=== PATIENT | female | born 1995 | race Caucasian/White ===

== ENCOUNTER 2019-12-09 09:13 | Emergency (ER) | payer SELFPAY ==
[~2019-12-09] VITALS: Ht 157.5 cm; Wt 106.6 kg
[~2019-12-09 09:13] MED LIST: PHENTERMINE H37.5 M1 PO
[2019-12-09] MEDS ORDERED: PYRIDIUM100 MG PO (09:40)
[2019-12-09] MEDS ORDERED: MACRODANTIN100 MG PO (09:40)
== END 2019-12-09 09:32 | disposition home or self-care (01) ==
LOC: FSED 09:13
DX: N30.01 Acute cystitis with hematuria (principal)
CPT/HCPCS: 81003; 81025; 87086; 99283

== ENCOUNTER 2019-12-31 08:07 | Emergency (ER) | payer SELFPAY ==
[~2019-12-31] VITALS: Ht 157.5 cm; Wt 101.6 kg
[~2019-12-31 08:07] MED LIST changes: +MACRODANTIN100 MG PO; +PYRIDIUM100 MG PO
[2019-12-31] MEDS ORDERED: IBUPROFEN600 MG PO (08:49)
[2019-12-31] MEDS ORDERED: ROBAXIN-750750 MG PO (08:49)
[2019-12-31 09:00] VITALS: BP 129/71
== END 2019-12-31 09:05 | disposition home or self-care (01) ==
LOC: FSED 08:07
DX: S00.31XA Abrasion of nose, initial encounter (principal); S80.02XA Contusion of left knee, initial encounter; S80.12XA Contusion of left lower leg, initial encounter; S86.212A Strain of muscle(s) and tendon(s) of anterior muscle group at lower leg level, left leg, initial encounter; V53.5XXA Driver of pick-up truck or van injured in collision with car, pick-up truck or van in traffic accident, initial encounter; Y92.488 Other paved roadways as the place of occurrence of the external cause
CPT/HCPCS: 81025; 99283